=== PATIENT | male | born 2005 | race Two or more races ===

== ENCOUNTER 2025-07-22 01:28 | Emergency (ER) | payer SELFPAY ==
[~2025-07-22] VITALS: Ht 177.8 cm; Wt 72.7 kg
[2025-07-22] MEDS: NALOXONE HCL 1MG/ML 2ML SYRINGE IV ONE ×2 (01:30→01:35)
[2025-07-22 01:31] VITALS: PULSE 111; RESP 13; O2SAT 98
--- NOTE | 2025-07-22 01:37 | ECG ---
[facility] Test Date: 2025-07-22 Test Time: 01:33:34 Pat Name: ROSA ISELA MARSH Department: ED Room: Gender: M Servicing Rep: KENNETH : 2005 Requested By: SHREYAS ROMAN Order Number: [id number] Reading MD: Rito Nguyen Measurements Intervals [place] Rate: 98 P: 82 NV: 145 QRS: 94 QRSD: 105 T: 67 QT: 355 QTc: 454 Interpretive Statements Sinus rhythm Consider right ventricular hypertrophy ST elev, probable normal early repol pattern Baseline wander in lead(s) II,V1,V2,V3,V6 Electronically Signed On 07-26-2025 14:57:15 PST by Rito Nguyen Please click the below link to view image of tracing.
[2025-07-22 01:40] VITALS: TEMP 97.7
--- NOTE | 2025-07-22 01:43 | ED.PDOC ---
Altered Mental Status HPI Comments 19-year-old male who came to ER via EMS for altered level of consciousness. Per EMS, patient was last seen normal by family members 45 minutes ago. Was seen lying on the bathroom floor, vomiting, becoming unresponsive to verbal stimuli. On scene, patient is saturating 95% room air, blood sugar 93, was still unre sponsive, so patient was given Narcan 2 mg intranasally. Family denies patient using any prohibited drugs. Chief Complaint: ALOC Time Seen by MD: 01:43 Reviewed Notes: Ell Tutor Notes Allergies: Coded Allergies: NO KNOWN ALLERGIES (Unverified , 07/22/25) Information Source: Emergency Med Personnel Mode of Arrival: EMS Severity: Unable to Care for Self Timing: Minutes Duration: Since onset Past Medical History PAST MEDICAL HISTORY: Unobtainable Surgical History: Unobtainable Family History Family History: Unobtainable Social History Smoker: Unobtainable Alcohol: Unobtainable Drugs: Unobtainable Lives In: Home Unable to Obtain due to: Altered Mental Status Physical Exam General Appearance: No Apparent Distress, Normal HEENT: Normal ENT Inspection, Pharynx Normal, TMs Normal Neck: Full Range of Motion, Non-Tender, Normal, Normal Inspection Respiratory: Chest Non-Tender, Lungs Clear, No Accessory Muscle Use, No Respiratory Distress, Normal Breath Sounds Cardiovascular: No Edema, No JVD, No Murmur, No Gallop, Normal Peripheral Pulses, Regular Rate/Rhythm Breast Exam: Deferred Gastrointestinal: No Organomegaly, Non Tender, No Pulsatile Mass, Normal Bowel Sounds, Soft Genitalia: Deferred Pelvic: Deferred Rectal: Deferred Extremities: No calf tenderness, Normal capillary refill, Normal inspection, Normal range of motion, Non-tender, No pedal edema Musculoskeletal : Apperance: Normal Neurologic: Alert, blister pack operator II-XII nml as Tested, No Motor Deficits, Normal Affect, Normal Mood, No Sensory Deficits Cerebellar Function: Normal Reflexes: Normal Skin: Dry, Normal Color, Warm Lymphatic: No Adenopathy Was a procedure done? Was a procedure done?: No Differential Diagnosis (ALOC) Differential Diagnosis: Encephalopathy, Seizure, Drug Overdose, ETOH Intoxication X-Ray, Labs, Meds, VS Vital Signs Date Time Temp Pulse Resp B/P (MAP) Pulse Ox O2 Delivery O2 Flow Rate FiO2 07/22/25 08:30 80 18 99/60 (73) 99 07/22/25 06:17 117 15 108/58 (75) 99 07/22/25 05:00 82 15 85/43 (57) 97 07/22/25 04:00 103 18 89/51 (64) 98 07/22/25 03:00 90 19 99/46 (63) 97 07/22/25 02:00 101 24 109/52 (71) 97 07/22/25 01:40 97.7 93 8 97/63 95 97.7 07/22/25 01:33 98 07/22/25 01:31 111 13 98 Room Air* 0 21 07/22/25 01:31 97.7 111 13 115/50 (71) 98 97.7 Lab Test 07/22/25 01:37 Range/Units White Blood Count 7.5 4.4-10.8 10^3/uL Red Blood Count 4.68 4.5-5.90 10^6/uL Hemoglobin 14.3 13.5-17.5 g/dL Hematocrit 43.0 41.0-53.0 % Mean Corpuscular Volume 92.0 80.0-100.0 fL Mean Corpuscular Hemoglobin 30.5 28.0-32.0 pg Mean Corpuscular Hemoglobin Concent 33.2 32.0-36.0 g/dL Red Cell Distribution Width 13.4 11.8-14.3 % Platelet Count 242 140-450 10^3/uL Mean Platelet Volume 7.5 6.9-10.8 fL Neutrophils (%) (Auto) 49.4 37.0-80.0 % Lymphocytes (%) (Auto) 43.2 10.0-50.0 % Monocytes (%) (Auto) 5.6 0.0-12.0 % Eosinophils (%) (Auto) 1.1 0.0-7.0 % Basophils (%) (Auto) 0.7 0.0-2.0 % Neutrophils # (Auto) 3.7 1.6-8.6 10 ^3/uL Lymphocytes # (Auto) 3.3 0.4-5.4 10 ^3/uL Monocytes # (Auto) 0.4 0-1.3 10 ^3/uL Eosinophils # (Auto) 0.1 0-0.8 10 ^3/uL Basophils # (Auto) 0.1 0-0.2 10 ^3/uL Nucleated Red Blood Cells 0.0 % Sodium Level 147 H 136-145 mmol/L Potassium Level 3.0 L 3.5-5.1 mmol/L Chloride Level 113 H 98-107 mmol/L Carbon Dioxide Level 23 20-31 mmol/L Anion Gap 11 5-15 Blood Urea Nitrogen 12 9-23 mg/dL Creatinine 0.97 0.700-1.30 mg/dL Glomerular Filtration Rate Calc 115 >90 mL/min BUN/Creatinine Ratio 12.4 10.0-20.0 Serum Glucose 102 74-106 mg/dL Calcium Level 8.1 L 8.7-10.4 mg/dL Total Bilirubin 0.5 0.2-1.0 mg/dL Aspartate Amino Transferase (AST) 21 13-40 U/L Alanine Aminotransferase (ALT) 20 7-40 U/L Alkaline Phosphatase 75 46-116 U/L Total Protein 6.8 5.7-8.2 g/dL Albumin 4.2 3.2-4.8 g/dL Plasma/Serum Blood Alcohol 276.5 H <10 mg/dL Current Medications Medications (Trade) Dose Ordered Sig/Emilie Route Start Time Stop Time Status Last Admin Sodium Chloride 1,000 ml @ 1,000 mls/hr Q1H ONCE IVB 07/22/25 01:45 07/22/25 02:44 DC 07/22/25 01:47 Ondansetron HCl (Zofran) 4 mg ONCE ONCE IV 07/22/25 01:45 07/22/25 01:46 DC 07/22/25 01:53 Naloxone HCl (Narcan) 2 mg ONCE ONCE IV 07/22/25 01:30 07/22/25 02:01 DC 07/22/25 01:30 Naloxone HCl (Narcan) 2 mg ONCE ONCE IV 07/22/25 01:35 07/22/25 02:01 DC 07/22/25 01:35 Sodium Chloride 1,000 ml @ 1,000 mls/hr Q1H ONCE IV 07/22/25 05:30 07/22/25 06:29 DC 07/22/25 05:41 Potassium Chloride 100 ml @ 50 mls/hr ONCE ONCE IV 07/22/25 05:30 07/22/25 07:29 DC 07/22/25 05:41 Time of 1ST Reevaluation: 01:39 Reevaluation 1ST: Unchanged Patient Education/Counseling: Pt Unresponsive Family Education/Counseling: No Family Present SEPSIS Sepsis Screen Physician Orders Electrocardigram (07/22/25 04:35) Global President (07/22/25 01:35) Straightcath If Unable To Void (07/22/25 01:35) Head Without Contrast (07/22/25 01:37) Vital Signs Date Time Temp Pulse Resp B/P (MAP) Pulse Ox O2 Delivery O2 Flow Rate FiO2 07/22/25 08:30 80 18 99/60 (73) 99 07/22/25 06:17 117 15 108/58 (75) 99 07/22/25 05:00 82 15 85/43 (57) 97 07/22/25 04:00 103 18 89/51 (64) 98 07/22/25 03:00 90 19 99/46 (63) 97 07/22/25 02:00 101 24 109/52 (71) 97 07/22/25 01:40 97.7 93 8 97/63 95 97.7 07/22/25 01:33 98 07/22/25 01:31 111 13 98 Room Air* 0 21 07/22/25 01:31 97.7 111 13 115/50 (71) 98 97.7 Laboratory Tests Test 07/22/25 01:37 White Blood Count 7.5 10^3/uL (4.4-10.8) Departure 1 Departure Time of Disposition: 03:30 Impression: Primary Impression: Alcohol intoxication Additional Impressions: Nausea & vomiting Hypokalemia Disposition: HOME / SELF CARE / HOMELESS Condition: Stable Discharged With: Self Critical Care Note Critical Care Time?: Yes (35 min-critical care time only) Stability Stability form required: No Heart Score Heart Score: Heart Score Response (Comments) Value History N/A 0 EKG N/A 0 Age N/A 0 Risk Factors N/A 0 Troponin N/A 0 Total 0 I personally scribed for SHREYAS ROMAN MD ([email or web address]) on 07/22/25 at 01:43. Electronically submitted by Uday Montalvo ([email or web address]). SHREYAS ROMAN MD Jul 22, 2025 01:43
[2025-07-22] MEDS: SODIUM CHLORIDE 0.9% 1,000 ML IVB ONE (01:47)
[2025-07-22 01:52] LABS: Hematocrit 43.0 % (41.0-53.0); Hemoglobin 14.3 g/dL (13.5-17.5); Mean Corpuscular Hemoglobin 30.5 pg (28.0-32.0); Mean Corpuscular Volume 92.0 fL (80.0-100.0); Nucleated Red Blood Cells % 0.0 %
[2025-07-22] MEDS: ONDANSETRON HCL 4 MG/2 ML VIAL IV ONE (01:53)
[2025-07-22] MEDS: NALOXONE HCL 1MG/ML 2ML SYRINGE ONE (02:02)
[2025-07-22 02:09] LABS: Alanine Aminotransferase 20 U/L (7-40); Alkaline Phosphatase 75 U/L (46-116); Carbon Dioxide 23 mmol/L (20-31)
[2025-07-22 02:10] LABS: Albumin 4.2 g/dL (3.2-4.8); Anion Gap 11 (5-15); BUN/Creatinine Ratio 12.4 (10.0-20.0); Bilirubin, Total 0.5 mg/dL (0.2-1.0); Blood Urea Nitrogen 12 mg/dL (9-23); Glucose 102 mg/dL (74-106); Total Protein 6.8 g/dL (5.7-8.2)
[2025-07-22 02:20] LABS: Calcium 8.1 mg/dL (8.7-10.4); Chloride 113 mmol/L (98-107); Potassium 3.0 mmol/L (3.5-5.1); Sodium 147 mmol/L (136-145)
[2025-07-22] MEDS: POTASSIUM CHLORIDE 20 MEQ, LIDOCAINE 1% (LOCAL ANESTH.) 2 ML in SODIUM CHL 0.9% 100 ML IV ONE (05:07)
[2025-07-22] MEDS: POTASSIUM CHL 20MEQ/100ML 100 ML IV ONE (05:41)
[2025-07-22] MEDS: SODIUM CHLORIDE 0.9% 1,000 ML IV ONE (05:41)
--- NOTE | 2025-07-22 06:31 | DVH ---
EXAM: CT HEAD WITHOUT CONTRAST HISTORY: ALOC COMPARISON: None TECHNIQUE: Noncontrast axial CT images of the head were performed. Sagittal and coronal reformatted images were obtained. This CT exam was performed using 1 or more of the following dose reduction techniques: Automated exposure control, adjustment of the mA and/or kv according to patient size, or the use of iterative reconstruction techniques. Radiation Dose: CTDI volume is 62.54 mGy. Dose-length product is 1000.67 mGy*cm FINDINGS: No intracranial hemorrhage, mass, midline shift, hydrocephalus, or evidence of acute large vessel infarct. The paranasal sinuses are clear. There are bilateral jemal bullosa, larger on the left. The bilateral mastoid air cells and middle ear spaces are clear. No cranial fracture or scalp edema. IMPRESSION: No acute intracranial process.
[2025-07-22 08:30] VITALS: BP 99/60; PULSE 80; RESP 18; O2SAT 99
== END 2025-07-22 09:14 | disposition home or self-care (01) ==
LOC: EDBD 01:28 → ER 01:28
DX: F10.129 Alcohol abuse with intoxication, unspecified (principal); E87.6 Hypokalemia; R11.2 Nausea with vomiting, unspecified; Y90.8 Blood alcohol level of 240 mg/100 ml or more
CPT/HCPCS: 36415; 70450; 80053; 80320; 85025; 93005; 96361; 96365; 96366; 96375; 99285; J2003; J2312; J2405; J3480; J7030